=== PATIENT | female | born 1960 | race Caucasian/White ===

== ENCOUNTER 2018-09-10 09:26 | Day surgery (SDC) | payer BC, OTHER ==
[~2018-09-10] VITALS: Ht 162.6 cm; Wt 76.2 kg
[~2018-09-10 09:26] MED LIST: BUPR300T4 PO; CLINDAMYCIN 900MG PREMIX 50 ML IV PRN; FLUT9.9S NS; HYDROmorphone 2 MG/ML VIAL IV PRN; IV RINGERS,LACTATED 1000ML 1,000 ML IV SCH; LATA2.5D3 OP; LEVO137T3 PO; LIDOCAINE 1% PF 2 ML VIAL. ID PRN; LIOT5TAB PO; MELO15TA23 PO; METF500T16 PO; MORPHINE SULFATE 4 MG/ML VIAL. IV PRN; MULT1TAB52 PO; ONDANSETRON PF 4 MG/2 ML VIAL. IV PRN; PROCHLORPERAZINE 10 MG/2 ML VIAL. IV PRN; fentaNYL PF VIAL 100 MCG/2 ML VIAL IV PRN
[2018-09-10] MEDS ORDERED: ONDANSETRON PF 4 MG/2 ML VIAL. ONE (10:41)
[2018-09-10] MEDS ORDERED: DEXAMETHASONE SOD PHOS 20 MG/5 ML VIAL. ONE (10:41)
[2018-09-10] MEDS ORDERED: PROPOFOL 20 ML IV ONE (10:41)
[2018-09-10] MEDS ORDERED: MIDAZOLAM HCL/PF 2 MG/2 ML VIAL. ONE ×2 (10:41→11:27)
[2018-09-10] MEDS ORDERED: fentaNYL PF VIAL 100 MCG/2 ML VIAL ONE ×2 (10:41→13:09)
[2018-09-10] MEDS ORDERED: LIDOCAINE 2% PF 5 ML VIAL. ONE (10:41)
[2018-09-10] MEDS ORDERED: ROPIVacaine 0.5% PF 20 ML VIAL. ONE (10:59)
[2018-09-10] MEDS ORDERED: SCOPOLAMINE 1.5MG PATCH. TD ONE ×2 (11:00→11:12)
[2018-09-10] MEDS ORDERED: LIDOCAINE 1% 20 ML VIAL. ONE (11:06)
[2018-09-10] MEDS ORDERED: EPINEPHrine VIAL 30 MG/30 ML VIAL ONE (11:06)
[2018-09-10 11:15] LABS: BASO % 0 % (0-3); EOS % 1 % (0-3); HEMATOCRIT 35.9 % (36.0-47.0); HEMOGLOBIN 12.6 g/dL (12.0-15.5); LYMPH # 1.2 x10^3/uL (1.0-4.8); LYMPH % 29 % (24-48); MEAN CORPUSCULAR HEMOGLOBIN 29 pg (25-35); MEAN CORPUSCULAR HGB CONC 35 g/dL (31-37); MEAN CORPUSCULAR VOLUME 84 fL (79-100); MONO # 0.3 x10^3/uL (0.0-1.1); MONO % 8 % (0-9); NEUT # 2.4 x10^3uL (1.8-7.7); NEUT % 62 % (31-73); PLATELET COUNT 315 x10^3/uL (140-400); RED CELL DISTRIBUTION WIDTH 14.8 % (11.5-14.5); WHITE BLOOD COUNT 3.9 x10^3/uL (4.0-11.0)
--- NOTE | 2018-09-10 11:18 | EKG ---
[facility] [address] [place] [address] Test Date: 2018-09-10 Test Time: 11:15:55 Pat Name: NICOLAS DEE Department: Room: Gender: F Metallurgical Engineer: ABRAM Ojeda : 1960 Requested By: LEDA MACIAS Order Number: [id number] Reading MD: Adryan Garber MD Measurements Intervals Melba Rate: 87 P: 58 TN: 166 QRS: -24 QRSD: 90 T: 50 QT: 400 QTc: 482 Interpretive Statements SINUS RHYTHM NON-SPECIFIC ST/T CHANGES PROLONGED QT Electronically Signed On 09-10-2018 12:36:13 GEL COATER by Adryan Garber MD
[2018-09-10 11:22] LABS: CALCIUM 9.1 mg/dL (8.5-10.1); CREATININE 0.6 mg/dL (0.6-1.0); GFR 102.7; POTASSIUM 3.7 mmol/L (3.5-5.1)
[2018-09-10] MEDS ORDERED: PHENYLEPHRINE in 0.9% NACL PF 1 MG/10 ML SYRINGE. IV ONE (12:03)
[2018-09-10] MEDS ORDERED: KETOROLAC 30 MG/ML INJ FOR OR. INJ ONE (12:40)
[2018-09-10] MEDS ORDERED: METOCLOPRAMIDE HCL 10 MG/2 ML VIAL. ONE (12:40)
[2018-09-10] MEDS ORDERED: FAMOTIDINE 20 MG/2 ML VIAL ONE (12:40)
[2018-09-10] MEDS ORDERED: SEVOFLURANE 61 TO 120 MINUTES. IH ONE (12:45)
[2018-09-10] MEDS: fentaNYL PF VIAL 100 MCG/2 ML VIAL IV PRN ×6 (14:18→15:42)
[2018-09-10] MEDS ORDERED: OXYC1TAB19 PO (15:23)
[2018-09-10] MEDS ORDERED: oxyCODONE/APAP 7.5/325 1 TAB TABLET PO ONE (15:30)
--- NOTE | 2018-09-10 15:46 | DISCH ---
DISCHARGE INSTRUCTIONS Condition on Discharge Condition on Discharge: Stable Activity After Discharge Activity Instructions for Disc: Other, see below (5 pound lifting limit with resisted elbow flexion) Weight Bearing Status after Di: Other, see below (5 pounds elbow flexion resistant limit) Diet after Discharge Diet after Discharge: Regular Wound Incision Care Wound/Incision Care: Ice to area for comfort, Change dressing (May remove dressings in 3 days may then shower) Contacting the DR. after DC Call your doctor for: Concerns you may have Follow-Up Follow up with: Virgilio 10 days RADHA RUIZ MD Sep 10, 2018 15:46
[2018-09-10 16:15] VITALS: BP 117/68
--- NOTE | 2018-09-10 17:15 | PDOC4 ---
Operative Note Operative Note Date of surgery: 09/10/2018 Preoperative diagnosis: SLAP tear with likely biceps compromise, acromioclavicular joint pain, right ring trigger finger Postoperative diagnosis: Same Operative procedure: Left shoulder arthroscopy biceps tenodesis subacromial decompression distal clavicle excision, right ring trigger finger release Surgeon: Virgilio Anesthesia: Gen. plus scalene block Estimated blood loss: 50 mL Complications: None Operative indications: Patient is a 58-year-old female with worsening left shoulder pain and a right ring trigger finger as noted in my preoperative clinical notes. I had gone over with her possible additional nonoperative treatment which is been working poorly for her as well as possible operative treatment of the shoulder evaluating and considering a biceps tenodesis for her injury as well as addressing any other pathology including a symptomatic narrowed degenerative distal clavicle. We had also covered the addition of the right ring finger trigger release or a painful locking catching trigger finger we covered possibility of nonhealing infection nerve or blood vessel damage continued pain medical or other anesthetic complications among others all her questions were answered she wishes to proceed with surgical evaluation and treatment. Operative text: Patient was identified procedure verified patient placed in the supine position on the operating table. After adequate amounts of general anesthesia were administered she was placed in the decubitus position left side up all bony prominences were well-padded and the left shoulder was examined under anesthesia found to have full range of motion no instability. The left shoulder was then prepped and draped in standard sterile fashion and after timeout was performed the shoulder was placed in the arthroscopic arm bentley under 10 pounds of traction and a standard posterior portal was established an anterior portal established using spinal he localization and the shoulder joint was systematically examined. Rotator cuff insertion including the subscapularis infraspinatus supraspinatus were all intact she had a normal bare area of the humerus she did have significant compromise of the superior labrum however at the biceps insertion and some partial fraying of the biceps tendon I elected at this point due to the condition to perform a biceps tenodesis biceps was tagged and cut. Subacromial space was then entered and bursal tissue was cleared for visualization she had a large anterior acromial spur which was trimmed back to stable type I acromion with cutting block technique narrowed arthritic distal clavicle was excised to 1 cm preserving the overlying joint capsule for stability. Biceps was then located and tenodesis through an anterior portal with a Scott Innotas Quattro bolt tenodesis screw 9 x 16 mm excellent tensioning of the tendon was visualized arthroscopic fluid was drained portals closed with some cutaneous Vicryl subcuticular Monocryl Steri-Strips and Mastisol sterile dressings were applied she is placed in a sling extubated and returned recovery room in stable condition having tolerated procedure well RADHA RUIZ MD Sep 10, 2018 17:15
== END 2018-09-10 16:30 | disposition home or self-care (01) ==
LOC: SURG 09:26
PROVIDERS: ATTEND Orthopaedic Surgery
DX: S43.432A Superior glenoid labrum lesion of left shoulder, initial encounter (principal); M65.341 Trigger finger, right ring finger; M25.512 Pain in left shoulder; Z88.0 Allergy status to penicillin; Z88.8 Allergy status to other drugs, medicaments and biological substances; X58.XXXA Exposure to other specified factors, initial encounter; Y93.89 Activity, other specified; Y92.89 Other specified places as the place of occurrence of the external cause; Y99.8 Other external cause status
CPT/HCPCS: 26055; 29824; 29828; 36415; 80048; 85025; 93005; A7015; C1713; J0171; J1100; J1885; J2001; J2250; J2370; J2405; J2704; J2765; J2795; J3010; J3490; J7120

== ENCOUNTER → 2021-07-14 | Outpatient (CLI) | payer BC, OTHER ==
[~2021-07-14] MED LIST changes: -BUPR300T4 PO; +BUPR300T92 PO; -CLINDAMYCIN 900MG PREMIX 50 ML IV PRN; -HYDROmorphone 2 MG/ML VIAL IV PRN; -IV RINGERS,LACTATED 1000ML 1,000 ML IV SCH; -LIDOCAINE 1% PF 2 ML VIAL. ID PRN; -LIOT5TAB PO; +LIOT5TAB4 PO; -MORPHINE SULFATE 4 MG/ML VIAL. IV PRN; +MULT-445 PO; -MULT1TAB52 PO; -ONDANSETRON PF 4 MG/2 ML VIAL. IV PRN; +OXYC1TAB19 PO; -PROCHLORPERAZINE 10 MG/2 ML VIAL. IV PRN; -fentaNYL PF VIAL 100 MCG/2 ML VIAL IV PRN
--- NOTE | 2021-07-14 13:53 | KCIC ---
EXAM: CT coronary artery calcium screening; radiologist over read. HISTORY: Mixed hyperlipidemia. Family history of heart disease. TECHNIQUE: Computed tomographic images of the chest were obtained without contrast. Multiplanar refor matting was performed. *One or more of the following individualized dose reduction techniques were utilized for this examina tion: 1. Automated exposure control. 2. Adjustment of the mA and/or kV according to patient size. 3. Use of iterative reconstruction technique. COMPARISON: None. FINDINGS: The heart is normal in size. The aorta is upper normal in caliber. There is calcified ather osclerotic plaque involving the coronary arteries. There is no infiltrate, pleural effusion or pneumo thorax. There is no suspicious pulmonary nodule. There is no acute finding involving the upper abdome n or osseous structures. Coronary artery calcium score: Left main artery - 0 Left anterior descending - 198.7 Left circumflex - 0 Right coronary artery - 0 Posterior descending artery - 0 TOTAL = 198.7 IMPRESSION: 1. Coronary artery calcium score of 198.7. There is moderate atherosclerotic plaque. 2. No acute thoracic finding. Electronically signed by: Jacy Bautista MD (07/14/2021 1:50 PM) [id number]
== END ==
LOC: KCIC CT 12:51
PROVIDERS: ATTEND Family Medicine
DX: I25.10 Atherosclerotic heart disease of native coronary artery without angina pectoris (principal); E78.2 Mixed hyperlipidemia; Z82.49 Family history of ischemic heart disease and other diseases of the circulatory system
CPT/HCPCS: 75571

== ENCOUNTER → 2021-09-01 | Outpatient (CLI) | payer BC, OTHER ==
--- NOTE | 2021-09-01 12:34 | RAD ---
MR#: [id number] Date of Study: 09/01/2021 Ordering Physician: DEB SULLIVAN, Referring Physician: SHASTA VILLALOBOS Tech: ADDIS Mobley, ARRT (R) (N) APPROVED REPORT Test Type: Exercise Stress Nurse/Tech: Mayo HAYDEN Test Indications: elevated calcium score/CAD Cardiac History: No known cardiac Medications: See EMR Medical History: See EMR Resting ECG: SR Resting Heart Rate: 74 bpm Resting Blood Pressure: 120/73mmHg Pretest Chest Pain: None Nurse/Tech Notes Lungs CTA, S1S2 heart tones. Stress Symptoms No chest pain. Dyspnea, Fatigue. SOA resolved by end of recovery. POST EXERCISE Reason for Termination: Reached target heart rate Target HR: Yes Max HR: 148 bpm 109% of Maximum Predicted HR: 135 bpm Exercise duration: 7:58 min:sec, Stage Exercise capacity: 10.0METs Max Blood Pressure: 143/75mmHg Blood Pressure response to exercise: Normal blood pressure response during stress. Heart Rate response to exercise: Normal response. Chest Pain: No. Arrhythmia: No. ST Change: No. INTERPRETATION Stress EKG Conclusion: Baseline EKG showed sinus rhythm. Non-diagnostic changes at peak stress. No arrhythmias. Imaging Protocol IMAGE PROTOCOL: Rest Tc-99m/stress Tc-99m 1 day Rest: Stress: Viability: Radiopharm.Tc99m [id number] Sestamibi Phhj59sMl 31mCi Img Date 09/01/2021 09/01/2021 Inj-Img [id number]. 60min. Rest Admin Site:IV - Right HandAdministrator:ARTURO Nicole Stress Admin Site: IV - Right HandAdministrator: RT Xochitl (R)(N) STRESS DATA End Diast. Vol.67.0mlLVEDV index BSA35.0ml End Syst. Vol.14.0mlLVESV index BSA8.0ml Myocardial Vpzr107.0gEject. Muquyuuf53.0% Stress Scores Regional WT0.00Summed WT0.00 Regional WM0.00Summed WM0.00 Study quality was good. Left Ventricular size was Normal at Rest and Stress. Lung uptake was . Left Ventricular ejection fraction is 78%. The rest and stress images show normal perfusion, normal contraction and thickening. LV Perf. Quant 17 Seg. SSS0.00 17 Seg. SRS0.00 17 Seg. SDS0.00 Stress Defect Extent (% LAD)0.00Rest Defect Extent (% LAD)0.00Rev. Defect Extent (% LAD)0.00 Stress Defect Extent (% LCX) 0.00Rest Defect Extent (% LCX)0.00Rev. Defect Extent (% LCX)0.00 Stress Defect Extent (% RCA)0.00Rest Defect Extent (% RCA)0.00Rev. Defect Extent (% RCA)0.00 Stress Defect Extent (% LENNY)0.00Rest Defect Extent (% LENNY)0.00Rev. Defect Extent (% LENNY)0.00 Conclusion 1. Treadmill exercise cardioisotope stress test did not show any evidence of ischemia or infarct. 2. Normal left ventricular systolic function with ejection fraction calculated at 75%. 3. Low risk for cardiac events. Signed by : Brennan Anne, Electronically Approved : 09/01/2021 12:34:03
== END ==
LOC: NM 08:47
PROVIDERS: ATTEND Family Medicine
DX: I25.10 Atherosclerotic heart disease of native coronary artery without angina pectoris (principal)
CPT/HCPCS: 78452; 93017; A9500